=== PATIENT | male | born 1990 | race Caucasian/White ===

== ENCOUNTER 2022-02-06 20:29 | Emergency (ER) | payer SELFPAY ==
[~2022-02-06] VITALS: Ht 177.8 cm; Wt 163.6 kg
[2022-02-07] MEDS ORDERED: IBUP800T27 PO (01:13)
[2022-02-07 01:20] VITALS: BP 136/88
== END 2022-02-07 01:42 | disposition home or self-care (01) ==
LOC: ER 20:33
DX: S83.92XA Sprain of unspecified site of left knee, initial encounter (principal); E66.01 Morbid (severe) obesity due to excess calories; Z91.040 Latex allergy status; Z68.43 Body mass index [BMI] 50.0-59.9, adult; W19.XXXA Unspecified fall, initial encounter; Y93.89 Activity, other specified; Y92.89 Other specified places as the place of occurrence of the external cause; Y99.8 Other external cause status
CPT/HCPCS: 29505; 73562